=== PATIENT | female | born 1970 | race Caucasian/White ===

== ENCOUNTER → 2023-10-30 | Outpatient (CLI) | payer BC ==
[2023-10-30 16:17] LABS: Basophils # (A) 0.04 X 10*3/uL (0.00-0.10); Basophils % (A) 0.5 %; Eosinophils # (A) 0 X 10*3/uL (0.04-0.35); Eosinophils % (A) 0 %; HCT 38.3 % (37.2-46.3); HGB 12.5 g/dL (12.0-15.0); Lymphocytes # (A) 1.79 X 10*3/uL (0.90-5.00); Lymphocytes % (A) 24.4 %; MCH 29.6 pg (27.0-32.0); MCHC 32.6 g/dL (32.0-37.0); MCV 90.8 FL (80.0-97.0); Mean Platelet Volume 10.3 FL (9.5-12.2); Monocytes # (A) 0.44 X 10*3/uL (0.20-1.00); NRBC Per 100 WBC 0 X 10*3/uL (0.00-0.01); Neutrophils # (A) 5.05 X 10*3/uL (1.80-7.70); Neutrophils % (A) 68.8 %; Platelet Count 345 X 10*3/uL (140-440); RBC 4.22 X 10*6/uL (4.10-5.20); RDW 15.5 % (11.5-14.5); WBC 7.34 X 10*3/uL (4.50-10.00)
[2023-10-30 16:35] LABS: BUN/Creat Ratio 13.12 Ratio (12.00-20.00); Blood Urea Nitrogen 10.5 mg/dL (9.0-27.0); Calcium 9.4 mg/dL (8.7-10.3); Carbon Dioxide 27.4 mmol/L (21.6-31.8); Chloride 104 mmol/L (96-109); Glucose 88 mg/dL (70-110); Potassium 4.6 mmol/L (3.5-5.5); Sodium 139 mmol/L (135-145)
== END | disposition home or self-care (01) ==
LOC: LABPAT 09:52
PROVIDERS: ATTEND Obstetrics & Gynecology
DX: Z01.812 Encounter for preprocedural laboratory examination (principal)
CPT/HCPCS: 80048; 85025; 86850; 86900; 86901; 93005

== ENCOUNTER 2023-11-06 05:31 | Day surgery (SDC) | payer BC ==
[2023-10-31 13:05] VITALS: BMI 36.6
--- NOTE | 2023-11-05 23:43 | P.HPOB ---
History of Present Illness H&P Date: 11/05/23 Chief Complaint: menorrhagia 53 year old presents for Total laparoscopic hysterectomy bilateral salpingectomy using da oren and diagnostic cystoscopy. She has extremely heavy periods with clots despite an ablation. Review of Systems All systems: negative Constitutional: Denies chills, Denies fever Eyes: denies blurred vision, denies pain Ears, nose, mouth and throat: Denies headache, Denies sore throat Cardiovascular: Denies chest pain, Denies shortness of breath Respiratory: Denies cough Gastrointestinal: Denies abdominal pain, Denies diarrhea, Denies nausea, Denies vomiting Genitourinary: Denies dysuria, Denies hematuria Musculoskeletal: Denies myalgias Integumentary: Denies pruritus, Denies rash Neurological: Denies numbness, Denies weakness Psychiatric: Denies anxiety, Denies depression Endocrine: Denies fatigue, Denies weight change Past Medical History Past Medical History: CVA/TIA Additional Past Medical History / Comment(s): CVA 12/02/21 (no residual effects). , herniated discs L-5 & S-1., recent stress fx left tibia., menorrhagia History of Any Multi-Drug Resistant Organisms: None Reported Past Surgical History: Uterine Ablation Additional Past Surgical History / Comment(s): uterine ablation january 2023 ., hysteroscopy & posterior repair Past Anesthesia/Blood Transfusion Reactions: No Reported Reaction, Motion Sickness Additional Past Anesthesia/Blood Transfusion Reaction / Comment(s): Has never anesthesia. Past Psychological History: No Psychological Hx Reported Smoking Status: Former smoker Past Alcohol Use History: Rare Additional Past Alcohol Use History / Comment(s): smokes 4 cigarettes/day, start ed age 18, smoked off and on. Past Drug Use History: None Reported Additional Drug Use History / Comment(s): . - Past Family History Mother Family Medical History: Cancer Additional Family Medical History / Comment(s): from breast cancer. Father Family Medical History: AICD/Pacemaker, Deep Vein Thrombosis (DVT) Additional Family Medical History / Comment(s): CABG X4. Sister(s) Family Medical History: Cancer Additional Family Medical History / Comment(s): Half sister - colon cancer. Medications and Allergies Home Medications Medication Instructions Recorded Confirmed Type Aspirin 81 mg PO DAILY 30 Days #30 tab 12/04/21 10/31/23 Rx Atorvastatin [Lipitor] 10 mg PO HS 11/07/22 10/31/23 History Allergies Allergy/AdvReac Type Severity Reaction Status Date / Time NSAIDS (Non-Steroidal AdvReac Unknown states "no Verified 10/31/23 12:50 Anti-Inflamma nsaids" due to hx of stroke Exam Osteopathic Statement: *. No significant issues noted on an osteopathic structural exam other than those noted in the History and Physical/Consult. HEart: RRR Lungs: CTAB Abdomen: soft, nontender Extremeties: neg keya's Assessment and Plan (1) Menorrhagia Status: Acute Code(s): N92.0 - EXCESSIVE AND FREQUENT MENSTRUATION WITH REGULAR CYCLE SNOMED Code(s): 918204723 Plan: TL BS using da oren and diagnostic cystoscopy
[2023-11-06] MEDS ORDERED: DEXAMETHASONE SOD PHOSPHATE 4 MG/ML 1 ML VIAL IV ONE (05:59)
[2023-11-06] MEDS ORDERED: LACTATED RINGERS 1,000 ML IV SCH (05:59)
[2023-11-06] MEDS ORDERED: ONDANSETRON 4 MG/2 ML VIAL IVP ONE (05:59)
[2023-11-06] MEDS ORDERED: HYDROmorphone 0.5 MG/0.5 ML SYRINGE IVP PRN (05:59)
[2023-11-06] MEDS ORDERED: LACTATED RINGERS 1,000 ML IV ONE ×2 (06:04→08:30)
[2023-11-06] MEDS ORDERED: MIDAZOLAM 2 MG/2 ML VIAL IVP ONE (06:42)
[2023-11-06] MEDS ORDERED: fentaNYL (PF) 50 MCG/ML 2 ML AMP IVP ONE (06:42)
[2023-11-06] MEDS ORDERED: diphenhydrAMINE 50 MG/ML 1 ML VIAL ONE (06:58)
[2023-11-06] MEDS ORDERED: ROCURONIUM 10 MG/ML (5 ML VIAL) IV ONE (07:10)
[2023-11-06] MEDS ORDERED: ACETAMINOPHEN IV (For NPO) 1,000 MG/100 ML VIAL ONE (07:10)
[2023-11-06] MEDS ORDERED: SUCCINYLCHOLINE CHLORIDE 200 MG/10 ML VIAL IV ONE (07:10)
[2023-11-06] MEDS ORDERED: MORPHINE SULFATE (PF) 0.3 MG/0.3 ML SYR ONE (07:10)
[2023-11-06] MEDS ORDERED: LIDOCAINE 1% INJ 10MG/ML (20 ML MDV) ONE (07:10)
[2023-11-06] MEDS ORDERED: GLYCOPYRROLATE 0.2 MG/ML 2 ML VIAL ONE (07:10)
[2023-11-06] MEDS ORDERED: NEOSTIGMINE 1 MG/ML 10 ML VIAL ONE (07:10)
[2023-11-06] MEDS ORDERED: PROPOFOL 10 MG/ML 20 ML VIAL IV ONE (07:10)
[2023-11-06] MEDS ORDERED: BUPIVACAINE (PF) 0.25% 30 ML VIAL SQ ONE (07:45)
--- NOTE | 2023-11-06 09:06 | P.OP ---
Date of Procedure: 11/06/23 Preoperative Diagnosis: 1. menorrhagia Postoperative Diagnosis: 1. menorrhagia Procedure(s) Performed: TL BS using da jorge and diagnostic cystoscopy Anesthesia: NICOLETTE Surgeon: Bailey White Under Trimmer #1: Missy Noel Estimated Blood Loss (ml): 40 IV fluids (ml): 600 Urine output (ml): 100 Pathology: other (uterus, cervix, bilateral fallopian tubes) Condition: stable Disposition: PACU Operative Findings: normal uterus, tubes and ovaries Description of Procedure: Patient taken the operating room where general anesthesia was obtained without difficulty. She is prepped and draped in normal sterile fashion dorsal lithotomy position, legs placed in the Eliu stirrups. Weighted speculum placed in the vagina and the anterior lip the cervix was grasped with single-tooth te naculum. The uterus sounded to 11 cm and the cervix diameter was 4 cm. The appropriate manipulator tip and ring were placed on the Savanna manipulator. The Savanna manipulator was then placed in the uterus. Santoyo catheter was also placed. Attention was then turned to the abdomen and gloves were changed. A 5 mm supraumbilical incision was made the scalpel and a 5 mm optical trocar was placed under direct visualization. 10 cm to the right of this and 2 cm down a 5 mm incision was made and 8 mm da Jorge port was placed under direct visualization. Same measurements on the opposite side of the patient's abdomen, the 5 mm incision was made and 8 mm da Jorge port was placed under direct visualization. In the left upper quadrant a 10 mm incision was made and a 10 mm optical trocar was placed under direct visualization. The 5 mm optical trocar was then replaced with the 8 mm da Jorge camera port. The robot was docked on patient's right side. The camera was introduced and then the monopolar curved scissor and the vessel sealer under direct visualization. I broke scrub and went to the physician console. The left mesosalpinx was sealed and cut with the sealer to remove the fallopian tube. The left round ligament and left utero- ovarian ligaments were sealed and cut with the vessel sealer. The posterior leaf of the broad ligament was taken down using the monopolar curved scissors. Anterior leaf of the broad ligament was then taken down using the monopolar curved scissors. The uterine artery was sealed and cut with the vessel sealer. The bladder flap was then started using the monopolar curved scissors. Attention was then turned to the right side of the patient's anatomy and the right mesosalpinx was sealed and cut with the vessel sealer to remove the right fallopian tube. The right round ligament and utero-ovarian ligaments were sealed and cut with the vessel sealer. Posterior leaf of the broad ligament was taken down using the monopolar curved scissors and the anterior leaf was taken down using the monopolar curved scissors. The uterine artery was cauterized the [place] bipolar cut with monopolar curved scissors. The bladder flap was then finished on this side. Anterior colpotomy was made using the monopolar curved scissors. The rest of the uterus was from the vaginal cuff by following the ring around with the monopolar curved scissors through the uterosacral ligaments back to the anterior portion. Once the uterus and cervix were amputated they were pulled through the vaginal cuff. Hemostasis to close to assure considering it was difficult to see the vaginal cuff. The instruments were changed for the Cardier forcep and the lauryn suture cut. the vaginal cuff was then closed with 2-0 Rosette effects barbed suture in a running fashion. Hemostasis was assured and the pelvis was irrigated. All instruments were removed from the abdomen and the robot was undocked. The abdominal incisions were closed with 4-0 Vicryl in a subcuticular fashion. Patient tolerated the procedure well, sponge and instrument counts correct 2 and she was taken to recovery room in stable condition condition
--- NOTE | 2023-11-06 09:16 | P.ANPRN ---
Procedure Note - Anesthesia - Epidural/Spinal Spinal Time Out Performed: Yes Date of Procedure: 11/06/23 Procedure Start Time: 06:42 Procedure Stop Time: 06:48 Location of Patient: PreOp Indication: Acute Post-Operative Pain, Requested by Surgeon (devon) Sedation Type: Sedate with meaningful contact maintained Preparation: Sterile Prep Number of Attempts: 1 Position: Sitting Catheter: None Needle Guage: 25 Injectate: duramorph 300mcg and fentanyl 25mcg Blood Aspirated: No Pain Paresthesia on Injection Noted: No Events: Uneventful and Well Tolerated
[2023-11-06] MEDS ORDERED: IBUPROFEN 600 MG TAB PO PRN (09:36)
[2023-11-06] MEDS ORDERED: SIMETHICONE 80 MG CHEWABLE PO PRN (09:36)
[2023-11-06] MEDS ORDERED: KETOROLAC 15 MG/ML 1 ML VIAL IVP PRN (09:36)
[2023-11-06] MEDS ORDERED: METOCLOPRAMIDE 5 MG/ML 2 ML VIAL IVP PRN (09:36)
[2023-11-06] MEDS ORDERED: ONDANSETRON 4 MG/2 ML VIAL IVP PRN (09:36)
[2023-11-06] MEDS ORDERED: Acetaminophen-Codeine 300-30mg TAB PO PRN (09:36)
[2023-11-06] MEDS ORDERED: diphenhydrAMINE 50 MG/ML 1 ML VIAL IM PRN (11:31)
[2023-11-06] MEDS ORDERED: diphenhydrAMINE 50 MG/ML 1 ML VIAL IVP PRN (20:06)
[2023-11-06] MEDS: Acetaminophen-Codeine 300-30mg TAB PO PRN (20:13)
[2023-11-06] MEDS ORDERED: SENNOSIDES-DOCUSATE SODIUM 1 EACH TAB PO SCH (21:00)
[2023-11-07] MEDS: Acetaminophen-Codeine 300-30mg TAB PO PRN ×2 (05:48→13:36)
[2023-11-07 06:03] LABS: Basophils % (A) 0 %; Eosinophils # (A) 0.1 k/uL (0-0.7); Eosinophils % (A) 1 %; HCT 33.5 % (34.0-46.0); Lymphocytes # (A) 1.7 k/uL (1.0-4.8); Lymphocytes % (A) 13 %; MCH 30.5 pg (25.0-35.0); MCHC 32.9 g/dL (31.0-37.0); MCV 92.8 fL (80.0-100.0); Mean Platelet Volume 7.9; Monocytes # (A) 0.6 k/uL (0-1.0); Monocytes % (A) 5 %; Neutrophils % (A) 80 %; Platelet Count 219 k/uL (150-450); RBC 3.61 m/uL (3.80-5.40); RDW 14.4 % (11.5-15.5); WBC 12.5 k/uL (3.8-10.6)
--- NOTE | 2023-11-07 06:53 | P.PN ---
Progress Note - Text 11/07/23 556am 53-year-old female status post vaginal hysterectomy with spinal Duramorph. Patient seen and evaluated for postop pain control, patient has a VAS of 0 with no complaints of nausea vomiting she has mild pruritus which should subside
--- NOTE | 2023-11-07 08:26 | P.DS ---
Providers Expected date of discharge: 11/07/23 Attending physician: Bailey White Primary care physician: Marcos Jagdish - Discharge Diagnosis(es) (1) Menorrhagia Current Visit: No Status: Resolved (2) S/P robot-assisted surgical procedure TLH BS using da jorge and diagnostic cystoscopy Current Visit: Yes Status: Acute Hospital Course: Patient presented for total laparoscopic hysterectomy bilateral salpingectomy using da Jorge and diagnostic cystoscopy. She underwent this procedure without complication. course has been uneventful. She is voiding and ambulating without difficulty. She denies nausea, vomiting, chest pain, shortness of breath or calf pain. Patient will be discharged home post operative day #1 in stable condition to follow-up with me in 3 weeks. Plan - Discharge Summary Discharge Rx Participant: No New Discharge Prescriptions: No Action Aspirin 81 mg PO DAILY 30 Days #30 tab Atorvastatin [Lipitor] 10 mg PO HS Discharge Medication List Aspirin 81 mg PO DAILY 30 Days #30 tab 12/04/21 [Rx] Atorvastatin [Lipitor] 10 mg PO HS 11/07/22 [History] Follow up Appointment(s)/Referral(s): Bailey White DO [Doctor of Osteopathic Medicine] - 3 Weeks Discharge Disposition: HOME SELF-CARE
[2023-11-07] MEDS ORDERED: ACETAMINOPHEN TAB 325 MG TAB PO PRN (09:16)
[2023-11-07 12:15] VITALS: BP 108/68; PULSE 80; RESP 16; TEMP 97.5
== END 2023-11-07 14:45 | disposition home or self-care (01) ==
LOC: OR 05:31 → 4FBP 08:40 → OR 11-07 14:45
PROVIDERS: ATTEND Obstetrics & Gynecology
DX: N72 Inflammatory disease of cervix uteri (principal); N80.03 Adenomyosis of the uterus; Z98.890 Other specified postprocedural states; Z79.82 Long term (current) use of aspirin; Z86.73 Personal history of transient ischemic attack (TIA), and cerebral infarction without residual deficits; Z87.891 Personal history of nicotine dependence; Z88.6 Allergy status to analgesic agent
CPT/HCPCS: 58571; 81025; 85025; 88307; J2250; J0330; J1200; J1100; J2710; J0690; J2405; J2001; J2274; J3010; J0131; J2704; J0665

== ENCOUNTER → 2024-01-01 | Outpatient (CLI) | payer BC ==
--- NOTE | 2024-01-01 21:06 | MM ---
Reason for Exam: Screening (asymptomatic). Last mammogram was performed 1 year(s) and 2 month(s) ago. Patient History: Menarche at age 16. First Full-Term at age 28. Hysterectomy at age 53. Patient has history of breast feeding. Hormonal Contraceptives, from age 18 until age 39. Mother had breast cancer, age 48. Risk Values: Araseli 5 year model risk: 1.8%. NCI Lifetime model risk: 15.2%. Prior Study Comparison: 06/14/2008 Bilateral Screening Mammogram, [facility]. 03/12/2010 Bilateral Screening Mammogram, [facility]. 05/08/2011 Bilateral Screening Mammogram, [facility]. Tissue Density: The breast tissue is heterogeneously dense. This may lower the sensitivity of mammography. Findings: Analyzed By CAD. Scattered benign punctate calcifications on the right. There is no suspicious group of microcalcifications or new suspicious mass in either breast. Overall Assessment: Benign, BI-RAD 2 Management: Screening Mammogram of both breasts in 1 year. . Patient should continue monthly self-breast exams. A clinical breast exam by your physician is recommended on an annual basis. This exam should not preclude additional follow-up of suspicious palpable abnormalities. Note on Araseli scores and lifetime risk: 1. A Araseli score greater than 3% is considered moderate risk. If this is the case, consider specialist referral to assess eligibility for a risk reducing agent. 2. If overall lifetime risk for the development of breast cancer is 20% or higher, the patient may qualify for future screening with alternating mammogram and breast MRI. Electronically signed and approved by: Khalif Mckeon M.D. Radiologist
== END | disposition home or self-care (01) ==
LOC: RADMAMWWP 10:25
PROVIDERS: ATTEND Family Medicine
DX: Z12.31 Encounter for screening mammogram for malignant neoplasm of breast (principal); Z80.3 Family history of malignant neoplasm of breast
CPT/HCPCS: 77063; 77067